=== PATIENT | female | born 1950 ===

== ENCOUNTER 2018-03-29 09:53 | Outpatient (CLI) | payer OTHER ==
[~2018-03-29] VITALS: Ht 152.4 cm; Wt 68.0 kg
== END 2018-03-29 10:15 | disposition home or self-care (01) ==
LOC: OFIC 805 09:53
DX: H93.13 Tinnitus, bilateral (principal); H90.3 Sensorineural hearing loss, bilateral; H61.23 Impacted cerumen, bilateral